=== PATIENT | female | born 1955 | race Caucasian/White ===

== ENCOUNTER 2016-08-22 11:43 | Emergency (ER) | payer OTHER ==
--- NOTE | ~2016-08-22 | CR220 ---
[facility] A Service of [facility] RADIOLOGY TEXT RESULTS PATIENT: SEAN HERNANDEZ LOCATION: CFTX : 57 UNIT #: [id number] AGE: [address]: SANDIE HERNANDEZ SEX: F ORDER DR: [id number] [facility] [address] [place], [place] [address] [id number] E MR#: [id number] Acc #: [id number] NAME: SEAN HERNANDEZ : 1955 SEX: F STUDY DATE/TIME: 08/22/2016 12:51 UNIT: [facility] ROOM: STUDY DESCRIPTION: CR Scapula Comp Lt Attending Physician: Sandie Hernandez A.P.R.N. Ordering Physician: Sandie Hernandez A.P.R.N. Primary Care Physician: Isidra Vazquez M.D. MEDICAL IMAGING REPORT This report is preliminary unless electronic signature is present EXAM Left scapula series dated 08/22/2016. COMPARISON STUDIES Left shoulder series dated 08/22/2016. HISTORY Slipped at work today. Left shoulder and scapular pain. FINDINGS 3 views of the left scapula were obtained. No discernible left scapular significant displaced fracture is noted. There is some subtle cortical interruption noted in the region of the inferior aspect of the left greater tuberosity with the adjacent left humeral cortex. A linear lucency is also noted in the region of the left humeral subcapital region extending towards the radial diaphysis. To further evaluate for subtle fractures in this region, CT shoulder can be considered. No dislocation. Dictated by... Raegan Ivey M.D. THIS IS AN ELECTRONICALLY VERIFIED REPORT Raegan Ivey M.D. at 08/24/2016 8:32 PM CPR/pcl TD: 08/22/2016 14:44 JOB #: [id number] MEDICAL IMAGING REPORT Page 1 of 1 COPY
--- NOTE | ~2016-08-22 | CR229 ---
[facility] A Service of [facility] RADIOLOGY TEXT RESULTS PATIENT: SEAN HERNANDEZ LOCATION: CFTX : 57 UNIT #: [id number] AGE: [address]: SANDIE HERNANDEZ SEX: F ORDER DR: [id number] [facility] [address] [place], [place] [address] [id number] E MR#: [id number] Acc #: [id number] NAME: SEAN HERNANDEZ : 1955 SEX: F STUDY DATE/TIME: 08/22/2016 12:49 UNIT: [facility] ROOM: STUDY DESCRIPTION: CR Shoulder Min 2 View Lt Attending Physician: Sandie Hernandez A.P.R.N. Ordering Physician: Sandie Hernandez A.P.R.N. Primary Care Physician: Isidra Vazquez M.D. MEDICAL IMAGING REPORT This report is preliminary unless electronic signature is present EXAM Left shoulder series dated 08/22/2016. COMPARISON Left scapula series dated 08/22/2016. HISTORY Patient slipped at work today. Left shoulder and scapular pain. FINDINGS 3 views of the left shoulder were obtained. A linear thin lucency is noted in the region of the left greater trochanter and superolateral left humeral head. A subtle fracture in this region cannot be excluded in the setting of significant trauma. No significantly displaced fragment is seen. Another lucency is also noted in the region of the left humeral neck extending towards the diaphysis. It could represent a vascular marking. Subtle nondisplaced fracture is less likely in this region. Clinical correlation and depending on the need, CT of the shoulder can be obtained for further characterization. Glenohumeral joint and left acromioclavicular joint are intact. Mild arthritic changes left acromioclavicular joint. Dictated by..Darcy Ivey M.D. THIS IS AN ELECTRONICALLY VERIFIED REPORT Raegan Ivey M.D. at 08/24/2016 8:32 PM CPR/pcl TD: 08/22/2016 14:39 JOB #: [id number] [facility] A Service of [facility] RADIOLOGY TEXT RESULTS PATIENT: SEAN HERNANDEZ [id number] : [birth year] UNIT #: [id number] AGE: [address]: SANDIE HERNANDEZ SEX: F ORDER DR: MEDICAL IMAGING REPORT Page 1 of 1 COPY
== END 2016-08-22 15:05 | disposition home or self-care (01) ==
LOC: CFTX 11:43 → CED 11:43 → CFTX 12:39
DX: S42.202A Unspecified fracture of upper end of left humerus, initial encounter for closed fracture (principal); F17.200 Nicotine dependence, unspecified, uncomplicated; X58.XXXA Exposure to other specified factors, initial encounter; Y92.69 Other specified industrial and construction area as the place of occurrence of the external cause
CPT/HCPCS: 73010; 73030; 99283